=== PATIENT | male | born 1990 | race Caucasian/White ===

== ENCOUNTER 2024-02-04 01:03 | Emergency (ER) | payer OTHER ==
[~2024-02-04] VITALS: Ht 170.2 cm; Wt 87.0 kg
[2024-02-04 01:44] VITALS: BP 105/64; PULSE 86; RESP 18; TEMP 98.2; O2SAT 100
== END 2024-02-04 01:51 | disposition left against medical advice (07) ==
LOC: ER 01:03
DX: Z53.21 Procedure and treatment not carried out due to patient leaving prior to being seen by health care provider (principal)
CPT/HCPCS: 99281